=== PATIENT | female | born 1990 | race Caucasian/White ===

== ENCOUNTER 2025-03-11 10:47 | Emergency (ER) | payer BC, SELFPAY ==
[2025-03-11 10:48] VITALS: BP 194/93; PULSE 115; RESP 18; TEMP 37.1; O2SAT 98; BMI 63.6
--- NOTE | 2025-03-11 13:49 | VDLE_ITS ---
Reason For Study Reason For Study: BLE Swelling RIGHT LEFT GSV is normal. GSV is normal. CFV is compressible, spontaneous, phasic, competent CFV is compressible, spontaneous, phasic, competent, and demonstrates normal augmentation. and demonstrates normal augmentation. FV is compressible, spontaneous, phasic, competent FV is compressible, spontaneous, phasic, competent and demonstrates normal augmentation. and demonstrates normal augmentation. POP V is compressible, spontaneous, phasic, competent POP V is compressible, spontaneous, phasic, competent and demonstrates normal augmentation. and demonstrates normal augmentation. Unable to visualize T/P Trunk. T/P Trunk is compressible. PTV is compressible. PTV is compressible. RT PerV is compressible. LT PerV is compressible. Procedure This is a venous duplex using B-mode, color flow and spectral Doppler. Exam performed portable in ED. Limited views obtained of calf vessels due to swelling and body habitus. The study was technically difficult. A preliminary report was called and/or faxed to Dr. Krishnan. VL/Venous Duplex US - Taz Extrem Interpretation Summary Deep veins of the lower extremities are bilaterally patent and compressible seg mentally. There is no evidence of deep vein thrombosis on either side. Valvular competence appears intact within the p roximal deep venous systems bilaterally. The great saphenous veins appear bilaterally patent and compressible segmentall y. The right tibio-peroneal trunk was not visualized. Ordering Physician: Kristen Krishnan Referring Physician: Graciela Connell Performed By: Sam House, RVT
--- NOTE | 2025-03-11 14:17 | ED.VIS.LOWEX ---
HPI History of Present Illness Chief Complaint: Edema Informant: patient Narrative Narrative: Patient is a 35-year-old female with chronic swelling of her legs (right worse than left) and prior DVT couple years ago, no currently on any blood thinners. She is presenting with worsening swelling of her lower extremities. States that in the past 1 to 2 weeks. States is no worse on her left in addition to the right. She states her left leg is not painful with any type of movements. She denies any shortness of breath or chest pain. Nuys any injuries. She is not on any oral contraceptives. She does report a history of hypothyroidism and states her TSH was checked recently was okay. She notes that she is currently getting a workup for swelling in her abdomen associated with masses around her uterus. She has had outpatient ultrasound within the last month for this. Adamantly denies any concern for . [facility] Medical History Leg swelling Home Medications Medication Instructions Recorded Last Taken Type hydrochlorothiazide 25 mg tablet 12.5 mg (1/2 x 25 mg) PO DAILY #7 03/11/25 Unknown Rx tabs Allergy/AdvReac Type Severity Reaction Status Date / Time No Known Allergies Allergy Verified 03/11/25 10:47 Social History Smoking Status: Unknown if ever smoked ROS ROS ED Constitutional Constitutional ED: Denies chills or fever(s) Respiratory/Chest Respiratory/Chest: Denies cough Gastrointestinal Gastrointestinal: Denies abdominal pain, nausea or vomiting Genitourinary Genitourinary ED: Denies dysuria Musculoskeletal Musculoskeletal: Reports other Details: leg swelling Integumentary Denies rash Neurologic Neurologic: Denies weakness Hematologic/Lymphatic Hematologic/Lymphatic: Denies easy bleeding or easy bruising EXAM Physical Exam Const Vital Signs: 03/11/25 10:48 03/11/25 13:58 03/11/25 14:56 Temperature 98.7 F 97.7 F L Temperature Source Oral Oral Pulse Rate 115 H 82 Respiratory Rate 18 18 Respiratory Effort Normal Non-Labored Blood Pressure 194/93 H 132/98 H Blood Pressure Mean 126 109 Pulse Ox 98 96 Oxygen Delivery Method Room Air Room Air Positive well nourished and well developed General Appearance ED: well developed and NAD HEENT normocephalic and atraumatic Neck full ROM and supple Neck Narrative: NO JVD Chest Wall inspection of chest normal Resp normal respiratory effort and clear to auscultation bilaterally Auscultation: Negative for rales or rhonchi Cardio regular rate, regular rhythm and no murmurs Cardio Narrative: 2+ DP pulses GI GI Narrative: Distended abdomen with palpable mass (currently being worked up outpatient) Extremity Extremity Narrative: Chronic lymphedema appearance to the bilateral lower extremities. No associated warmth, wounds or cellulitic changes. Swelling slightly worse on the right compared to the left. Chronic skin changes present more pronounced on the right lower extremity compared to the left. No obvious joint effusion present. No short arc range of motion pain of the left knee Neuro oriented x3 Sensorium / Orientation: alert Motor Exam: Negative for general weakness Psych mental status grossly normal Skin no wounds Skin Narrative: See extremity exam MDM MDM MDM Narrative Medical decision making narrative: Evaluated for increased one of her legs (left worse than right) but she has chronic swelling of her right lower extremity. Does have a history of DVT. Upon arrival patient is hypertensive and tachycardic however repeat vital signs they have completely normalized without further intervention. She has good distal pulses. No cellulitic changes at this time. Venous duplex obtained while technically difficult did not show any large DVT. She states she had recent lab work for her thyroid that was normal so low suspicion for acute thyroid abnormality to be causing the swelling. She does have swelling and mass of her abdomen and evidence that she is not . She states she had a recent ultrasound for workup and this is actually scheduled for an outpatient MRI. Will try to review these results [facility]. On [facility] she had relatively normal CMP earlier this year and she had normal free T4 on 01/19/2025. Pelvic ultrasound report reviewed from 02/11/2025 which showed bilateral multiloculated cystic masses and recommends further outpatient MRI evaluation. Patient will follow-up outpatient for her pelvic MRI. Will give referral for wound care as I think she would benefit from lymphedema assistance. She is agreeable with this. In the meantime we will put her on a short course of diuretics to help with her symptoms. Will have her follow-up with primary care. Given return precautions. Discharged home in stable condition peer Discharge Plan Triage Chief Complaint: Edema ED Provider: Kristen Krishnan Dx/Rx/DC Orders Clinical Impression: Bilateral leg edema Instructions: ED Peripheral Edema, Bilateral, ED Lymphedema Prescriptions: New hydrochlorothiazide 25 mg tablet 12.5 mg PO DAILY Qty: 7 0RF Other Ambulatory Orders: Wound Care Referral (Routine) Timeframe: 1 Week Facility: [facility] - Location[facility] Ordered By: Dr. Kristen Krishnan Primary Care Provider: Graciela Connell Referrals: Graciela Connell MD [Primary Care Provider, Internal Medicine] Activity Restrictions/Additional Instructions: Will start her on a diuretic to hopefully help with some of this increase swelling. Please follow-up with your family doctor for recheck of your labs in the next week or 2 associated with a diuretic. Please follow-up with wound care, you were given a referral and they should contact you to arrange for follow-up. Print Language: Lithuanian Disposition Disposition: Home, Self Care
[2025-03-11 14:56] VITALS: BP 132/98; PULSE 82; RESP 18; TEMP 36.5; O2SAT 96
== END 2025-03-11 15:51 | disposition home or self-care (01) ==
PROVIDERS: Emergency Provider Emergency Medicine; PCP Student in an Organized Health Care Education/Training Program; Visit Provider Emergency Medicine
DX: R60.0 Localized edema (principal); R19.00 Intra-abdominal and pelvic swelling, mass and lump, unspecified site; Z86.718 Personal history of other venous thrombosis and embolism; N85.8 Other specified noninflammatory disorders of uterus
CPT/HCPCS: 93970; 99282

== ENCOUNTER 2025-03-25 09:30 | Outpatient (RCR) | payer BC, SELFPAY ==
[2025-03-18 10:56] VITALS: BP 149/101; PULSE 104; RESP 15; TEMP 36.3; BMI 63.6
--- NOTE | 2025-03-18 11:00 | WC ---
Redness on right upper calf posterior.
--- NOTE | 2025-03-18 12:56 | WC ---
will refer to [facility] - send demo and referral fax: [phone]
--- NOTE | 2025-03-18 13:08 | HP.PCM_ITS ---
History of Present Illness Date of Service: 03/18/25 Chief Complaint: Lower leg edema with some redness and her calf and thigh area History of Wound: 35-year-old white morbidly obese woman who has history of lymphedema both legs. She was seen in the emergency room on 1111 and told she might have some cellulitis to the right leg and further referred to the wound center. She states she is not diabetic and she has no other meds except for her thyroid and she also takes sertraline. She is currently not using anything on her legs and she has terrible back probably from her weight that is keeping her from doing a lot of walking but she does stand and move around. She is not working at this time because of her back [facility] Medical History Leg swelling Home Medications ?Medication ?Instructions ?Recorded ?Last Taken ?Type hydrochlorothiazide 25 mg tablet 12.5 mg (1/2 x 25 mg) PO DAILY #7 03/11/25 Unknown Rx tabs levothyroxine 200 mcg tablet 200 mcg PO DAILY 03/18/25 Unknown History sertraline 100 mg tablet 150 mg PO DAILY 03/18/25 Unk nown History Allergy/AdvReac Type Severity Reaction Status Date / Time No Known Allergies Allergy Verified 03/11/25 10:47 Social History Smoking Status: Unknown if ever smoked ROS Constitutional Constitutional: Reports systems reviewed and no addt'l complaints, except as documented Eyes Eyes: Reports systems reviewed and no addt'l complaints, except as documented ENT HEENT: Reports systems reviewed and no addt'l complaints, except as documented Cardiovascular Cardiovascular: Reports systems reviewed and no addt'l complaints, except as documented Respiratory/Chest Respiratory/Chest: Reports systems reviewed and no addt'l complaints, except as documented Gastrointestinal Gastrointestinal: Reports systems reviewed and no addt'l complaints, except as documented Genitourinary Genitourinary: Reports systems reviewed and no addt'l complaints, except as documented Musculoskeletal Musculoskeletal: Reports systems reviewed and no addt'l complaints, except as documented Integumentary Integumentary: Reports other Details: Lymphedema bilateral lower legs and some xerosis of bilateral lower legs ; Denies wounds Neurologic Neurologic: Reports systems reviewed and no addt'l complaints, except as documented Psychiatric Psychiatric: Reports systems reviewed and no addt'l complaints, except as documented Endocrine Endocrinology: Reports systems reviewed and no addt'l complaints, except as documented Hematologic/Lymphatic Hematologic/Lymphatic: Reports systems reviewed and no addt'l complaints, except as documented Allergic/Immunologic Allergic/Immunologic: Reports systems reviewed and no addt'l complaints, except as documented Vital Signs Vital Signs Vital Signs: 03/18/25 10:56 Temperature 97.3 F L Temperature Source Temporal Pulse Rate 104 H Respiratory Rate 15 Blood Pressure 149/101 H Blood Pressure Mean 117 Blood Pressure Source Monitor Blood Pressure Position Sitting Blood Pressure Location Right Arm Weight Weight: 315 lb Body Mass Index (BMI) 63.6 Physical Exam Const oriented x3 Constitutional Narrative: Morbid obesity General Appearance: cooperative Exam Limitations: no limitations HEENT normocephalic Head and Scalp: normal to inspection Eyes General Eye: normal appearance of both eyes Neck full ROM General: normal visual inspection Lymph Lymphatic: Negative for no lymphedema noted Lymphatic Narrative: Positive lymphedema bilateral lower legs and her arms Resp normal respiratory effort Effort and Inspection: able to speak in complete sentences Auscultation: clear to auscultation bilaterally Cardio regular rate and regular rhythm GI Auscultation: normoactive bowel sounds external exam normal Extremity General Extremity: normal exam except as noted and other findings Other Details: Bilateral lower leg lymphedema, xerosis Skin Skin Narrative: Dry skin patches of overgrowth in the form of xerosis on her lower extremities Neuro oriented x3 Psych Appearance: grossly normal Speech: normal speech Thought Content: normal thought content Judgement: judgement good Debridement Note Debridement Note No debridement was completed: No debridement was completed today Post-Debridement Measurements and Additional Note: Post-Debridement Measurements/Treatment - Nurse 1 - General Ulcer Assessment Start: 03/18/25 10:54 Freq: Status: Active Protocol: FEMI Activity Type Activity Date Activity User E-sign Co-sign Detail Recorded Client Recorded Date Recorded By Document 03/18/25 10:56 ML [id number] 03/18/25 11:03 ML 03/18/25 10:56 - Today's Visit Information Type of service Initial Visit Arrival Mode Ambulatory Transfer Assistance None Patient Identification Verified (Name & Yes ) Patient Requires Transmission-Based No Precautions Height and Weight Height 4 ft 11 in Weight 315 lb Weight in Pounds 315.0 lbs Body Mass Index (BMI) 63.6 BMI Classification Obese Vital Signs Temperature (97.8 F-99.1 F) 97.3 F L Temperature Source Temporal Pulse Rate (60-100) 104 H Pulse Location Monitor Respiratory Rate (12-18) 15 Respiratory rate source Monitor Blood Pressure (90/60-120/80) 149/101 H Blood Pressure Mean 117 Source Monitor Position Sitting Blood Pressure Location Right Arm Pain Scale: 0-10 Numeric Is Patient Pain Free? Yes Communication Assessment Able to Read Yes Able to Write Yes Right Hearing Abillity Use of Hearing Aid Left Hearing Abillity Use of Hearing Aid Visual Assistive Devices Glasses Culture/Mandaeism/Order Analyst Cultural/Mandaeism Needs that may affect No Treatment Plan Would you allow our hospital diesel engine mechanic apprentice to Yes meet you for the purpose of spiritual/ emotional support? WC - Nurse 1 - General Ulcer Measurement Start: 03/18/25 10:54 Freq: Status: Active Protocol: Activity Type Activity Date Activity User E-sign Co-sign Detail Recorded Client Recorded Date Recorded By Document 03/18/25 10:56 ML [id number] 03/18/25 11:03 ML 03/18/25 10:56 Wound Center Nurse 1 Right Calf (cm) 68.5 Right Ankle (cm) 34 Left Calf (cm) 64 Left Ankle (cm) 34 03/18/25 11:00 Wound Center by Sonia Barker Reddara on right upper calf posterior. Initialized on 03/18/25 11:00 - END OF NOTE WC - Nurse 2 - General Ulcer CM Notes Start: 03/18/25 10:54 Freq: Status: Active Protocol: Activity Type Activity Date Activity User E-sign Co-sign Detail Recorded Client Recorded Date Recorded By Document 03/18/25 11:40 GM [id number] 03/18/25 11:41 GM 03/18/25 11:40 Wound Center Nurse 2 bilateral lower extremities -Time 11:41 -Correct Patient Yes -Correct Side, Site, Position Yes -Procedure Performed No -Wound/Ulcer Outcome Not Healed Pain Scale: 0-10 Numeric Is Patient Pain Free? Yes WC - Nurse 3 - General Ulcer D/C NN Start: 03/18/25 10:54 Freq: Status: Active Protocol: Activity Type Activity Date Activity User E-sign Co-sign Detail Recorded Client Recorded Date Recorded By Document 03/18/25 11:50 [id number] 03/18/25 11:51 03/18/25 11:50 Wound Care Center Nurse 3 bilateral lower extremities -Wound Comment(s) lotion applied to BLE BLE -Lotion applied to leg before Yes compression wrap -Compression Wrap Dexter Wrap Pain Scale: 0-10 Numeric Is Patient Pain Free? Yes WC - Visit Discharge Discharge Condition Stable Ambulatory Status Ambulatory Transportation Private Auto Clinical Summary of Care Provided Yes Assessment/Plan Assessment/Plan (1) Bilateral leg edema: CODE(S): R60.0 - Localized edema (2) Lymphedema: CODE(S): I89.0 - Lymphedema, not elsewhere classified PLAN: Dexter wrap's from feet to knees bilaterally. Pad the areas of deep crevices like ankle and back of knees. Follow-up in 1 week Will try to refer her to the lymphedema clinic. (3) Xerosis cutis: CODE(S): L85.3 - Xerosis cutis PLAN: Wash legs with antibacterial soap and water and apply AmLactin cream to all dry patches areas
--- NOTE | 2025-03-19 09:01 | WC ---
PHOTO-B/L [email or web address] 03/18/25
[2025-03-25 09:40] VITALS: BP 128/70; PULSE 84; RESP 16; TEMP 36.1; BMI 63.6
--- NOTE | 2025-03-25 11:12 | PN.PCM_ITS ---
History of Present Illness Date of Service: 03/25/25 Chief Complaint: Lower leg edema with some redness and her calf and thigh area History of Wound: 35-year-old white morbidly obese woman who has history of lymphedema both legs. She was seen in the emergency room on 03/11 and told she might have some cellulitis to the right leg and further referred to the wound center. She states she is not diabetic and she has no other meds except for her thyroid and she also takes sertraline. She is currently not using anything on her legs and she has terrible back probably from her weight that is keeping her from doing a lot of walking but she does stand and move around. She is not working at this time because of her back Progress of Wound: Patient still has no wound still has the lymphedema but we wrapped her legs last week and that shows very much more improvement in her legs they are not as red they look really good. She just needs to get her appointment with lymphedema clinic for the wraps she has also an appointment with occupational therapy for walking and exercising. She needs to continue dieting and if she develops a wound she can follow back up otherwise she will be discharged from the wound center. Subjective Subjective Patient was very good about wearing her wraps and she likes them and she will continue using the wraps until she is seen by lymphedema clinic and get the proper wraps for her lymphedema. Objective Data Objective Data Legs show no sign of cellulitis or any kind of openings patient tolerated the wraps really well patient will be discharged from the wound center and she will follow-up with lymphedema clinic and Occupational Therapy Vital Signs: Vital Signs Temp Pulse Resp BP O2 Del Method 96.9 F L 84 16 128/70 H Room Air 03/25/25 09:40 03/25/25 09:40 03/25/25 09:40 03/25/25 09:40 03/25/25 09:40 Oxygen Delivery Method Room Air Weight: 315 lb Body Mass Index (BMI) 63.6 Physical Exam Const oriented x3 Constitutional Narrative: Morbid obesity General Appearance: cooperative Exam Limitations: no limitations HEENT normocephalic Head and Scalp: normal to inspection Eyes General Eye: normal appearance of both eyes Neck full ROM General: normal visual inspection Lymph Lymphatic: Negative for no lymphedema noted Lymphatic Narrative: Positive lymphedema bilateral lower legs and her arms Resp normal respiratory effort Effort and Inspection: able to speak in complete sentences Auscultation: clear to auscultation bilaterally Cardio regular rate and regular rhythm GI Auscultation: normoactive bowel sounds external exam normal Extremity General Extremity: normal exam except as noted and other findings Other Details: Bilateral lower leg lymphedema, xerosis Skin Skin Narrative: Dry skin patches of overgrowth in the form of xerosis on her lower extremities Neuro oriented x3 Psych Appearance: grossly normal Speech: normal speech Thought Content: normal thought content Judgement: judgement good Debridement Note Debridement Note No debridement was completed: No debridement was completed today Post-Debridement Measurements and Additional Note: Post-Debridement Measurements/Treatment - Nurse 1 - General Ulcer Assessment Start: 03/18/25 10:54 Freq: Status: Active Protocol: FEMI Activity Type Activity Date Activity User E-sign Co-sign Detail Recorded Client Recorded Date Recorded By Document 03/18/25 10:56 [id number] 03/18/25 11:03 ML Document 03/25/25 09:40 [email or web address] [id number] 03/25/25 09:58 03/18/25 03/25/25 10:56 09:40 - Today's Visit Information Type of service Initial Visit Follow-up Visit (Physician/[employer]PA[employer]ER ) Arrival Mode Ambulatory Ambulatory Transfer Assistance None None Accompanied by family Patient Identification Verified (Name & Yes Yes ) Patient Requires Transmission-Based No No Precautions Safety Precautions NA Height and Weight Height 4 ft 11 in Weight 315 lb Weight in Pounds 315.0 lbs Body Mass Index (BMI) 63.6 63.6 BMI Classification Obese Obese Vital Signs Temperature (97.8 F-99.1 F) 97.3 F L 96.9 F L Temperature Source Temporal Temporal Pulse Rate (60-100) 104 H 84 Pulse Location Monitor Monitor Respiratory Rate (12-18) 15 16 Respiratory rate source Monitor Observation Oxygen Delivery Method Room Air Blood Pressure (90/60-120/80) 149/101 H 128/70 H Blood Pressure Mean (mm Hg) 117 89 Source Monitor Monitor Position Sitting Sitting Blood Pressure Location Right Arm Left Forearm History Since Last Visit- (Skip if this is Patient's initial visit) Have you changed medications since your No last visit? Any new allergies or adverse reactions No Had a fall/change in ADL's that may No increase risk of falls Signs or symptoms of abuse and/or No neglect since last visit Have you been in the hospital since your No last visit? Has dressing in place as prescribed Yes Has compression in place as prescribed Yes Has offloadiing in place as prescribed N/A Experienced any changes in pain level or No management Left Footwear Regular Shoe Right Footwear Regular Shoe Pain Scale: 0-10 Numeric Is Patient Pain Free? Yes Yes Communication Assessment Able to Read Yes Able to Write Yes Right Hearing Abillity Use of Hearing Aid Left Hearing Abillity Use of Hearing Aid Visual Assistive Devices Glasses Culture/Gnosticism/Stem Threshing Machine Operator Cultural/Gnosticism Needs that may affect No Treatment Plan Would you allow our hospital waffle machine operator to Yes meet you for the purpose of spiritual/ emotional support? WC - Nurse 1 - General Ulcer Measurement Start: 03/18/25 10:54 Freq: Status: Active Protocol: Activity Type Activity Date Activity User E-sign Co-sign Detail Recorded Client Recorded Date Recorded By Document 03/18/25 10:56 ML [id number] 03/18/25 11:03 ML Document 03/25/25 09:40 [id number] 03/25/25 09:58 Edit Result 03/25/25 09:40 JM (1) [id number] 03/25/25 10:03 (1) bilateral lower extremities - Date of Last Picture (Recall this => 03/25/25 field) - Photo Taken => Yes - Exudate Amt => None Present - Texture (Larisa-wound Skin Appearance) => Assessed - Moisture (Larisa-wound Skin Appearance) => Assessed,Dry/Scaly - Color (Larisa-wound Skin Appearance) => Assessed - Temperature (Larisa-wound Skin => No Abnormality (Pt Appearance) => Warm) - Tenderness on Palpation (Larisa-wound => No Skin Appearance) - Ulcer Cleansing => Soap and Water - Wound Comment(s) => b/l le w/lympedema- no open wounds. 03/18/25 03/25/25 10:56 09:40 Wound Center Nurse 1 bilateral lower extremities -Date of Last Picture (Recall this 03/25/25 field) -Photo Taken Yes -Exudate Amt None Present -Texture (Larisa-wound Skin Appearance) Assessed -Moisture (Larisa-wound Skin Appearance) Assessed,Dry/ Scaly -Color (Larisa-wound Skin Appearance) Assessed -Temperature (Larisa-wound Skin No Abnormality Appearance) (Pt Warm) -Tenderness on Palpation (Larisa-wound No Skin Appearance) -Ulcer Cleansing Soap and Water -Wound Comment(s) b/l le w/ lympedema- no open wounds. Lower Limb Edema Present Yes Right Calf (cm) 68.5 67.5 Right Ankle (cm) 34 37 Left Calf (cm) 64 60 Left Ankle (cm) 34 35 03/18/25 11:00 Wound Center by Sonia Barker Redness on right upper calf posterior. Initialized on 03/18/25 11:00 - END OF NOTE WC - Nurse 2 - General Ulcer CM Notes Start: 03/18/25 10:54 Freq: Status: Active Protocol: Activity Type Activity Date Activity User E-sign Co-sign Detail Recorded Client Recorded Date Recorded By Document 03/18/25 11:40 [id number] 03/18/25 11:41 Document 03/25/25 10:15 [id number] 03/25/25 10:17 03/18/25 03/25/25 11:40 10:15 Wound Center Nurse 2 bilateral lower extremities -Time 11:41 10:15 -Correct Patient Yes Yes -Correct Side, Site, Position Yes Yes -Procedure Performed No No -Tunneling No -Undermining/Tunneling No -Circular Undermining No -Wound/Ulcer Outcome Not Healed Not Healed -Bleeding Controlled with NA -Debridement - Subq, 1st 20sq cm No Pain Scale: 0-10 Numeric Is Patient Pain Free? Yes Yes - Nurse 3 - General Ulcer D/C NN Start: 03/18/25 10:54 Freq: Status: Active Protocol: Activity Type Activity Date Activity User E-sign Co-sign Detail Recorded Client Recorded Date Recorded By Document 03/18/25 11:50 GM [id number] 03/18/25 11:51 GM Document 03/25/25 10:58 RB [id number] 03/25/25 10:58 RB 03/18/25 03/25/25 11:50 10:58 Wound Care Center Nurse 3 bilateral lower extremities -Other Dressing ABD in skin folds -Primary Dressing Covered/Secured with Dry Gauze -Wound Comment(s) lotion applied to BLE BLE -Lotion applied to leg before Yes compression wrap -Compression Wrap Dexter Wrap Dexter Wrap Treatment Response Procedure Tolerated Well Pain Scale: 0-10 Numeric Is Patient Pain Free? Yes Yes WC - Visit Discharge Discharge Condition Stable Stable Ambulatory Status Ambulatory Ambulatory Transportation Private Auto Private Auto Accompanied by Medication Reconcilliation completed & No provided to patient/care provider Clinical Summary of Care Provided Yes Yes Assessment/Plan Assessment/Plan (1) Bilateral leg edema: CODE(S): R60.0 - Localized edema (2) Lymphedema: CODE(S): I89.0 - Lymphedema, not elsewhere classified PLAN: Dexter wrap's from feet to knees bilaterally. Pad the areas of deep crevices like ankle and back of knees. Discharged from the wound center and she can follow-up as needed Will have patient make appointment with lymphedema clinic. Patient already has appointment with occupational therapy on April 06 (3) Xerosis cutis: CODE(S): L85.3 - Xerosis cutis PLAN: Wash legs with antibacterial soap and water and apply AmLactin cream to all dry patches areas
--- NOTE | 2025-03-30 09:21 | WC ---
PHOTO-B/L ANDRA 03/25/25
== END 2025-03-29 23:59 | disposition home or self-care (01) ==
LOC: WC 09:30
PROVIDERS: PCP Student in an Organized Health Care Education/Training Program; Referring Provider Emergency Medicine; Visit Provider Nurse Practitioner
DX: R60.0 Localized edema (principal); E66.01 Morbid (severe) obesity due to excess calories; Z68.44 Body mass index [BMI] 60.0-69.9, adult; I89.0 Lymphedema, not elsewhere classified; L85.3 Xerosis cutis
CPT/HCPCS: 99212; 99213; G0463